=== PATIENT | male | born 1985 | race Caucasian/White ===

== ENCOUNTER 2019-09-07 10:39 | Emergency (ER) | payer SELFPAY | END 2019-09-07 10:55 | disposition left against medical advice (07) | LOC: ER 10:43 | DX: R51 Headache (principal); R06.02 Shortness of breath; R50.9 Fever, unspecified ==

== ENCOUNTER → 2021-02-08 | Outpatient (CLI) | payer SELFPAY ==
--- NOTE | 2021-02-08 11:33 | Diagnostic Imaging Report ---
Indication: Left wrist injury with continued pain. TIME OF EXAM: 11:16 AM 3 views of the left wrist were obtained. The distal radius and ulna appear to be intact. Carpal bones are intact. No fractures are seen. IMPRESSION: No acute bony abnormality is detected. Dictated by: Dictated on workstation # [id number]
--- NOTE | 2021-02-08 13:48 | Diagnostic Imaging Report ---
INDICATION: Left hand injury with pain. TECHNIQUE: AP, oblique, and lateral views of the left hand were obtained. FINDINGS: Mild deformity of the 2nd terminal tuft may be related to old injury. No acute fracture or dislocation is identified. No abnormal lytic or sclerotic focus is seen. There is no radiopaque foreign body. IMPRESSION: No acute abnormality. Dictated by: Dictated on workstation # [id number]
== END ==
LOC: RAD 10:34
PROVIDERS: ATTEND Physician Assistant
DX: S69.92XA Unspecified injury of left wrist, hand and finger(s), initial encounter (principal); W22.8XXA Striking against or struck by other objects, initial encounter
CPT/HCPCS: 73110; 73130